=== PATIENT | female | born 1990 | race Two or more races ===

== ENCOUNTER 2018-10-15 16:20 | Emergency (ER) | payer SELFPAY ==
[~2018-10-15] VITALS: Ht 165.1 cm; Wt 60.0 kg
[2018-10-15 18:43] VITALS: BP 133/72
== END 2018-10-15 18:49 | disposition home or self-care (01) ==
LOC: ER 17:56
DX: S00.81XA Abrasion of other part of head, initial encounter (principal); F12.10 Cannabis abuse, uncomplicated; X58.XXXA Exposure to other specified factors, initial encounter; Y93.I9 Activity, other involving external motion; Y92.89 Other specified places as the place of occurrence of the external cause; Y99.8 Other external cause status
CPT/HCPCS: 99283

== ENCOUNTER 2018-11-06 13:43 | Emergency (ER) | payer SELFPAY ==
[~2018-11-06] VITALS: Ht 165.1 cm; Wt 59.0 kg
[2018-11-06 13:59] VITALS: BP 114/64
[2018-11-06] MEDS ORDERED: ACETAMINOPHEN 650MG/20.3ML UDC PO ONE (15:15)
== END 2018-11-06 15:18 | disposition home or self-care (01) ==
LOC: ER 13:43
DX: S00.81XA Abrasion of other part of head, initial encounter (principal); Y04.8XXA Assault by other bodily force, initial encounter; Y93.89 Activity, other specified; Y92.89 Other specified places as the place of occurrence of the external cause
CPT/HCPCS: 99283